=== PATIENT | female | born 1960 | race Caucasian/White ===

== ENCOUNTER 2017-07-06 15:55 | Emergency (ER) | payer BC ==
[2017-07-06 16:38] VITALS: PULSE 70; TEMP 98.3; BMI 24.1
--- NOTE | 2017-07-06 18:05 | PDOC ---
Attending Attestation - Resident Resident Name: OlegarioEdie - ED Attending Attestation I have performed the following: I have examined & evaluated the patient, The case was reviewed & discussed with the resident, I agree w/resident's findings & plan, Exceptions are as noted - HPI HPI: 07/06/17 18:01 56yo F hx concussion p/w feeling off balanced, weak LE since 4am this morning when she woke up to use the bathroom. Went to see PMD Dr. Remy who told her this was not an ear problem and to come to the ED for a CT. Reports that she has had to adapt a wide based gait today due to her unsteadiness when ambulating. Denies trauma, injury, urinary retention, headache, back pain, sensory deficits, N/V, fevers, sick contacts, recent illness. No recent travel. Pt reports intermittent right sided mastoiditis. - Physicial Exam PE: 07/06/17 18:04 GENERAL: Awake, alert, and fully oriented, in no acute distress HEAD: No signs of trauma EYES: PERRLA, EOMI, sclera anicteric, conjunctiva clear ENT: Auricles normal inspection, hearing grossly normal, mild R mastoid ttp, nares patent, oropharynx clear without exudates. Moist mucosa NECK: Normal ROM, supple, no lymphadenopathy, JVD, or masses Back: No midline spinal ttp LUNGS: Breath sounds equal, clear to auscultation bilaterally. No wheezes, and no crackles HEART: Regular rate and rhythm, normal S1 and S2, no murmurs, rubs or gallops ABDOMEN: Soft, nontender, normoactive bowel sounds. No guarding, no rebound. No masses EXTREMITIES: Normal range of motion, no edema. No clubbing or cyanosis. No cords, erythema, or tenderness NEUROLOGICAL: Normal speech, cranial nerves intact, negative pronator drift, 5/ 5 strength in all 4 extremities, normal sensation to light touch in all 4 extremities, normal cerebellar exam, normal reflexes and tone, wide based ataxic gait, unable to walk in tandem SKIN: Warm, Dry, normal turgor, no rashes or lesions noted. - Medical Decision Making 07/06/17 18:05 56yo F hx concussion p/w unsteady gait. Exam with wide based ataxic gait and inability to walk in tandem since last night. Pt out of TPA window. Ddx includes CVA given exam findings vs dehydration although pt reports having normal PO intake and does not appear dry on exam vs infection although pt has no focal infectiuus symptoms other than complaint of chronic mastoiditis. -labs -MRI brain /MRA head and neck -reassess 07/06/17 19:06 Pt pending labs and MR's. Pt signed out to Dr. Stewart for further evaluation and management.
[2017-07-06 18:43] LABS: BASOPHIL 0.5 % (0-2.0); EOSINOPHIL 0.9 % (0-4.5); MCHC 34.4 g/dl (32.0-36.0); MEAN CELL VOLUME 95.9 fl (80-96); MEAN PLT VOLUME 7.6 fl (7.5-11.1); NEUTROPHILS 55.9 % (42.8-82.8); PLATELET COUNT 247 K/MM3 (134-434); WHITE BLOOD COUNT 5.2 K/mm3 (4.0-10.0)
[2017-07-06 19:16] LABS: ALBUMIN 4.1 g/dl (3.4-5.0); ANION GAP 7 (8-16); BILIRUBIN,TOTAL 0.3 mg/dL (0.2-1.0); CALCIUM 9.6 mg/dL (8.5-10.1); CO2 28 mmol/L (21-32); CREATININE 0.6 mg/dL (0.55-1.02); GLUCOSE,RANDOM 81 mg/dL (74-106); SGPT/ALT 24 U/L (12-78); TOT PROT 6.8 g/dl (6.4-8.2)
[2017-07-06 19:17] LABS: ALK PHOS 68 U/L (45-117)
[2017-07-06 19:18] LABS: SGOT/AST 22 U/L (15-37)
--- NOTE | 2017-07-06 19:34 | PDOC ---
History of Present Illness - General Chief Complaint: Lightheaded Stated Complaint: LIGHTHEADED Time Seen by Provider: 07/06/17 17:24 History Source: Patient Exam Limitations: No Limitations - History of Present Illness Initial Comments: 56yo F with PMH of concussions, presents c/o lightheadedness since 4am. Pt woke up at 4am this morning to use the bathroom and when she stood up her legs felt rubbery. She made it to the bathroom and went back to bed. Upon rising at 9:30am this morning pt still felt "off." Pt saw her PCP today (Dr. Barnes) who told her this was not an ear problem and advised her to come to the ER. Upon arrival to the ER pt still reports feeling off balance, a little different in the head. Pt denies recent travel, recent illness, sick contacts, chest pain , palpitations, sob, nausea, vomiting, fever, chills. Neurologist: Dr. Onur Sierra 07/06/17 19:29 Past History - Past Medical History Allergies/Adverse Reactions: Allergies Allergy/AdvReac Type Severity Reaction Status Date / Time CANTELOPE AdvReac Uncoded 07/06/17 16:38 HONEYDEW AdvReac Uncoded 07/06/17 16:38 Home Medications: Ambulatory Orders NK [No Known Home Medication] 07/06/17 Suicide Attempt (Hx): No Other medical history: MIGRAINES , ARTHRITIS - Surgical History Other Surgical History: DENIES 07/06/17 19:34 - Family Disease History Family Disease History: CA: Mother (breast) - Psycho/Social/Smoking Cessation Hx Anxiety: No Suicidal Ideation: No Smoking Status: No Smoking History: Never smoked Number of Cigarettes Smoked Daily: 0 Hx Alcohol Use: No Drug/Substance Use Hx: No Substance Use Type: None Review of Systems - Review of Systems Constitutional: No: Chills, Diaphoresis, Fever HEENTM: Yes: Nose Congestion (post-nasal drip). No: Recent change in vision, Ear Pain, Nose Pain, Throat Pain Respiratory: No: Cough, Shortness of Breath, Stridor, Wheezing, Hemoptysis Cardiac (ROS): Yes: Lightheadedness. No: Chest Pain, Edema, Irregular Heart Rate, Palpitations, Syncope, Chest Tightness ABD/GI: No: Abdominal Distended, Constipated, Diarrhea, Nausea, Rectal Bleeding , Vomiting, Abdominal cramping : No: Burning, Dysuria, Hematuria Musculoskeletal: No: Joint Pain, Muscle Pain Integumentary: No: Bruising, Lesions, Rash Neurological: Yes: Unsteady Gait (gait is steady with a wider stance), Dizziness. No: Headache, Numbness, Paresthesia, Pre-Existing Deficit, Tingling , Weakness *Physical Exam - Vital Signs Last Vital Signs Temp Pulse Resp BP Pulse Ox 98.3 F 70 20 123/71 98 07/06/17 16:36 07/06/17 16:36 07/06/17 16:36 07/06/17 16:36 07/06/17 16:36 - Physical Exam General Appearance: Yes: Nourished, Appropriately Dressed. No: Apparent Distress HEENT: positive: EOMI, SANAM, Normal Voice, Pharynx Normal. negative: Pale Conjunctivae, Scleral Icterus (R), Scleral Icterus (L), Pharyngeal Erythema, Rhinorrhea Neck: positive: Trachea midline, Supple Respiratory/Chest: positive: Lungs Clear, Normal Breath Sounds. negative: Respiratory Distress, Accessory Muscle Use Cardiovascular: positive: Regular Rhythm, Regular Rate, S1, S2. negative: Murmur Gastrointestinal/Abdominal: positive: Soft. negative: Distended, Guarding, Rebound, Tenderness Musculoskeletal: positive: Normal Inspection Extremity: positive: Normal Inspection. negative: Swelling, Calf Tenderness, Erythema Integumentary: positive: Normal Color, Dry, Warm Neurologic: positive: job setter honing II-XII NML intact, Fully Oriented, Alert, Normal Mood/ Affect, Normal Response, Motor Strength 5/5. negative: Facial Droop, Numbness, Sensory Deficit, Confused, Disoriented ED Treatment Course - LABORATORY CBC & Chemistry Diagram: 07/06/17 18:20 07/06/17 18:20 - ADDITIONAL ORDERS Additional order review: Laboratory Results 07/06/17 07/06/17 18:20 18:20 WBC 5.2 RBC 4.04 Hgb 13.3 Hct 38.7 MCV 95.9 MCH 33.0 MCHC 34.4 RDW 13.0 Plt Count 247 MPV 7.6 Neutrophils % 55.9 Lymphocytes % 32.8 D Monocytes % 9.9 Eosinophils % 0.9 Basophils % 0.5 Sodium 138 Potassium 4.3 Chloride 103 Carbon Dioxide 28 Anion Gap 7 L BUN 14 D Creatinine 0.6 Creat Clearance w eGFR > 60 Random Glucose 81 Calcium 9.6 Total Bilirubin 0.3 D AST 22 D ALT 24 Alkaline Phosphatase 68 Total Protein 6.8 Albumin 4.1 07/06/17 18:20 RBC 4.04 MCV 95.9 MCHC 34.4 RDW 13.0 MPV 7.6 Neutrophils % 55.9 Lymphocytes % 32.8 D Monocytes % 9.9 Eosinophils % 0.9 Basophils % 0.5 - RADIOLOGY Radiology Studies Ordered: Category Date Time Status BRAIN MRA W/O CONTRAST [MRI] Stat MRI 07/06/17 19:18 Ordered BRAIN MRI W/O CONTRAST [MRI] Stat MRI 07/06/17 19:18 Ordered NECK MRA W/O CONTRAST [MRI] Stat MRI 07/06/17 19:18 Ordered Medical Decision Making - Medical Decision Making 56yo F with PMH of concussions, presents c/o lightheadedness since 4am. Gait was steady with a wider stance upon initial exam. Later, around 7pm, pt demonstrated ataxia. CBC with diff -> wnl CMP -> wnl EKG -> NSR UA MRI brain without contrast, MRA brain without contrast, MRA neck without contrast. 07/06/17 19:41 07/06/17 19:46 Case signed out to ER resident Dr. Sincere Thomas. Pt requests that results of MRI studies be phoned to her neurologist: Dr. Sierra at [phone]. *DC/Admit/Observation/Transfer Diagnosis at time of Disposition: Lightheadedness, Ataxia
--- NOTE | 2017-07-06 20:47 | PDOC ---
*Physical Exam - Vital Signs MRI neck and MRA brain, wanted her neurologist to be called with results (Dr. Sierra [phone]). Last Vital Signs Temp Pulse Resp BP Pulse Ox 98.3 F 70 20 123/71 98 07/06/17 16:36 07/06/17 16:36 07/06/17 16:36 07/06/17 16:36 07/06/17 16:36 07/06/17 20:01 - Physical Exam General Appearance: Yes: Nourished. No: Apparent Distress HEENT: positive: EOMI, Normal Voice, Hearing Grossly Normal. negative: Scleral Icterus (R), Scleral Icterus (L), Nasal Congestion Neck: positive: Trachea midline, Supple. negative: Tender, Rigid Respiratory/Chest: positive: Lungs Clear, Normal Breath Sounds. negative: Respiratory Distress, Crackles, Rhonchi, Stridor, Wheezing Cardiovascular: positive: Regular Rhythm, Regular Rate. negative: Murmur Gastrointestinal/Abdominal: positive: Normal Bowel Sounds, Soft. negative: Tender, Organomegaly, Pulsatile Mass, Guarding Musculoskeletal: positive: Normal Inspection. negative: Decreased Range of Motion, Vertebral Tenderness Extremity: positive: Normal Capillary Refill, Normal Inspection, Normal Range of Motion. negative: Tender, Cyanosis Integumentary: positive: Normal Color, Dry, Warm. negative: Erythema, Rash, Bruising Neurologic: positive: gas and oil checker II-XII NML intact, Fully Oriented, Alert, Normal Mood/ Affect, Normal Response, Motor Strength 5/5 ED Treatment Course - LABORATORY CBC & Chemistry Diagram: 07/06/17 18:20 07/06/17 18:20 - ADDITIONAL ORDERS Additional order review: Laboratory Results 07/06/17 18:20 Sodium 138 Potassium 4.3 Chloride 103 Carbon Dioxide 28 Anion Gap 7 L BUN 14 D Creatinine 0.6 Creat Clearance w eGFR > 60 Random Glucose 81 Calcium 9.6 Total Bilirubin 0.3 D AST 22 D ALT 24 Alkaline Phosphatase 68 Total Protein 6.8 Albumin 4.1 07/06/17 18:20 RBC 4.04 MCV 95.9 MCHC 34.4 RDW 13.0 MPV 7.6 Neutrophils % 55.9 Lymphocytes % 32.8 D Monocytes % 9.9 Eosinophils % 0.9 Basophils % 0.5 *DC/Admit/Observation/Transfer Diagnosis at time of Disposition: Lightheaded, Ataxia - Prescriptions Prescriptions: Clindamycin [Cleocin -] 300 mg PO Q6HPO #40 capsule - Referrals Referrals: Holly Barnes MD [Primary Care Provider] - - Patient Instructions Printed Discharge Instructions: DI for Mastoiditis-Adult Additional Instructions: You were seen today in the ED for dizziness. We did an MRI/MRA of the head and neck, and the only abnormality was fluid behind the ear in the mastoid which can indicate mastoiditis. We gave you a dose of clindamycin here in the department and are sending a prescription to your pharmacy. Please leaf size picker the prescription and take it as described on the label. Ask the pharmacist any additional questions you have about the medication. Please follow up with neurology and ENT as soon as possible. Return to the ED for any new or worsening symptoms like dizziness that will not go away. - Post Discharge Activity
[2017-07-06 20:53] LABS: URINE APPEARANCE CLEAR; URINE BILIRUBIN NEGATIVE (NEGATIVE); URINE BLOOD NEGATIVE (NEGATIVE); URINE COLOR STRAW; URINE GLUCOSE (UA) NEGATIVE (NEGATIVE); URINE KETONE NEGATIVE (NEGATIVE); URINE LEUK ESTERASE NEGATIVE (NEGATIVE); URINE NITRITE NEGATIVE (NEGATIVE); URINE PROTEIN NEGATIVE (NEGATIVE); URINE UROBILINOGEN NEGATIVE mg/dL (0.2-1.0)
[2017-07-06] MEDS ORDERED: CLINDAMYCIN HCL 150 MG CAPSULE (FP) PO ONE (21:18)
[2017-07-06] MEDS ORDERED: MECLIZINE HCL 25 MG TABLET (FP) ONE (22:03)
[2017-07-06] MEDS ORDERED: MECLIZINE HCL 25 MG TABLET (FP) PO ONE (22:06)
[2017-07-06 22:22] VITALS: BP 116/70
--- NOTE | 2017-07-07 13:12 | EKG ---
Test Reason : Blood Pressure : / mmHG Vent. Rate : 064 BPM Atrial Rate : 064 BPM P-R Int : 124 ms QRS Dur : 082 ms QT Int : 390 ms P-R-T Axes : 009 048 043 degrees QTc Int : 402 ms NORMAL SINUS RHYTHM NORMAL ECG WHEN COMPARED WITH ECG OF 27-OCT-2001 11:02, NO SIGNIFICANT CHANGE WAS FOUND Confirmed by JOHNNA JONES MD ([id number]) on 07/07/2017 1:12:11 PM Referred By: Confirmed By:JOHNNA JONES MD
== END 2017-07-06 22:23 | disposition home or self-care (01) ==
LOC: JER 15:55
DX: R42 Dizziness and giddiness (principal); R26.0 Ataxic gait
CPT/HCPCS: 36415; 70544-TC; 70547-TC; 70551-TC; 80053; 81003; 85025; 93005; 93010; 99283-25